=== PATIENT | male | born 1975 | race Caucasian/White ===

== ENCOUNTER 2017-02-17 21:25 | Emergency (ER) | payer SELFPAY ==
[2017-02-17] MEDS ORDERED: BUPIVACAINE HCL/PF 5 MG/ML 10ML VIAL IV ONE (22:36)
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
[2017-02-17] MEDS: BUPIVACAINE IM ONE (22:45)
[2017-02-17] MEDS: [UNRECOGNIZED DRUG - OTHER] IM ONE (22:45)
[2017-02-18 01:48] VITALS: BP 114/65
== END 2017-02-17 23:30 | disposition home or self-care (01) ==
LOC: ED 21:25
DX: L02.91 Cutaneous abscess, unspecified (principal); L03.116 Cellulitis of left lower limb
CPT/HCPCS: 10060; 87070; 96372; 99283; J3490